=== PATIENT | male | born 2000 ===

== ENCOUNTER 2023-05-28 18:07 | Emergency (ER) | payer MEDICAID ==
[2023-05-28] MEDS: Dexamethasone 4 MG/ML SDV IM ONE (18:45)
== END 2023-05-28 18:54 | disposition home or self-care (01) ==
LOC: DL.ED 18:07
DX: S39.012A Strain of muscle, fascia and tendon of lower back, initial encounter (principal); M53.3 Sacrococcygeal disorders, not elsewhere classified; W20.8XXA Other cause of strike by thrown, projected or falling object, initial encounter
CPT/HCPCS: 96372; 99283; J1100; 99282